=== PATIENT | male | born 1985 | race Caucasian/White ===

== ENCOUNTER 2019-05-05 09:15 | Emergency (ER) | payer OTHER ==
[2019-05-05 09:37] VITALS: BP 140/97
--- NOTE | 2019-05-05 09:48 | UC ---
Cardiac HPI - HPI Summary HPI Summary: 33 y/o male presents to the urgent care c/o left laterals side rib pain radiating to flank area s/p doing leg presses and the GYM on 04/28/2019. Pt reports he was doing weights w/ his legs when he felt a cramp, but he was able to finish his set. He states at rest no pain, but w/ certain movements or bumps in the car pain is 6/10. He has taken Aleve PO to alleviate symptoms. He is concerned w/ a rib fracture. He denies any bruises or swelling, fever, dizziness, SOB, ches tpian, respiratory distress, urinary symptoms, Hx of kidney stones, N/V/D. - History of Current Complaint Chief Complaint: UCBackPain Stated Complaint: LT RIB PAIN Time Seen by Provider: 05/05/19 09:47 Hx Obtained From: Patient Onset/Duration: Gradual Onset, Lasting Days - 4 days Timing: Constant Initial Severity: Mild Current Severity: Moderate Pain Intensity: 6 - w/ movement Chest Pain Location: Discrete at:, Left Lateral - rib pain radiating to the flank left side at times Character: Dull/Aching Aggravating Factor(s): Movement, Deep Breaths Alleviating Factor(s): Rest, Position, OTC Meds Associated Signs & Symptoms: Positive: Negative - Risk Factors Pulmonary Embolism Risk Factors: Negative Cardiac Risk Factors: Negative Atrial Fibrillation: Negative TAD Risk Factors: Negative - Allergy/Home Medications Allergies/Adverse Reactions: Allergies Allergy/AdvReac Type Severity Reaction Status Date / Time No Known Allergies Allergy Verified 05/05/19 09:31 Home Medications: Home Medications Ibuprofen TAB* [Motrin TAB* 400 MG] 400 mg PO Q6H PRN 05/05/19 [History Confirmed 05/05/19] PMH/Surg Hx/FS Hx/Imm Hx Previously Healthy: Yes - Pt denies PMHX - Surgical History Surgical History: None - Family History Known Family History: Positive: Diabetes - Social History Occupation: Employed Full-time Lives: With Family Alcohol Use: None Substance Use Type: None Smoking Status (MU): Never Smoked Tobacco Review of Systems All Other Systems Reviewed And Are Negative: Yes Constitutional: Positive: Negative Skin: Positive: Negative Eyes: Positive: Negative ENT: Positive: Negative Respiratory: Positive: Negative Cardiovascular: Positive: Negative Gastrointestinal: Positive: Negative Genitourinary: Positive: Negative Motor: Positive: Negative Neurovascular: Positive: Negative Musculoskeletal: Positive: Decreased ROM - lateral side of his left ribs, Other : - laterals side of left rib pain Neurological: Positive: Negative Psychological: Positive: Negative Is Patient Immunocompromised?: No Physical Exam - Summary Physical Exam Summary: Vital Signs Reviewed: Yes General: well developed, well nourished male sitting in the examining table w/o any apparent distress Eyes: Positive: Conjunctiva Clear - PERRLA, EOMI, fundi grossly normal ENT: Positive: Normal ENT inspection, Hearing grossly normal, Pharynx normal, Nasal congestion - edematous and erythematous nasal mucosa, Nasal drainage - yellowish drainage, TMs normal. Negative: Tonsillar swelling, Tonsillar exudate Neck: Positive: Supple, Nontender, No Lymphadenopathy Respiratory: no orthopnea or dyspnea. Able to speak in full sentences, no retractions or accessory muscle use, no tripod position, stridor, or head bobbing. Positive breath sounds bilaterally. diffuse scattered wheezing and rhonchi on b/L lungs, no crackles or rales. Point tenderness on left lateral side of Ribs #10-12 w/o soft tissue swelling or ecchymosis. Cardiovascular: Positive: RRR, No Murmur, Pulses Normal, Brisk Capillary Refill Abdomen Description: Positive: Nontender, No Organomegaly, Soft. Negative: CVA Tenderness (R), CVA Tenderness (L) Bowel Sounds: Positive: Present Musculoskeletal Exam: Normal Musculoskeletal: Positive: Strength Intact, ROM Intact, No Edema Neurological Exam: Normal Psychological Exam: Normal Skin Exam: Normal Triage Information Reviewed: Yes Vital Signs: Initial Vital Signs Temp 98.5 F 05/05/19 09:32 Pulse 59 05/05/19 09:32 Resp 16 05/05/19 09:32 BP 140/97 05/05/19 09:32 Pulse Ox 98 05/05/19 09:32 - Assessment/Plan Course Of Treatment: 33 y/o male presents to the urgent care c/o left laterals side rib pain radiating to flank area s/p doing leg presses and the GYM on 04/28/2019. Pt reports he was doing weights w/ his legs when he felt a cramp, but he was able to finish his set. He states at rest no pain, but w/ certain movements or bumps in the car pain is 6/10. He has taken Aleve PO to alleviate symptoms. He is concerned w/ a rib fracture. He denies any bruises or swelling, fever, dizziness, SOB, ches tpian, respiratory distress, urinary symptoms, Hx of kidney stones, N/V/D. Hx obtained. Pt is hemodynamically stable. UA: negtive. LF Rib and Chest X-ray ordered to r/o fracture. Impression:No rib fracture , no pneumothorax or effusion observed as per radiologist. Pt w/ possible muscle spasm. Pt given an Incentive Spirometer to improve lung function and avoid atelectasis seen he states pain w/ deep breathing. Nurse educated Pt on how to use it. Pt Rx Flexeril PO PO and advised to continue taking Ibuprofen PO for pain and f/u w/ PCP if not improvement of symptoms. Also advised to avoid strenuous exercise or heavy lifting. Pt's BP is elevated today advised to decrease salt in diet, monitor BP and f/u with PCP for further management. D/C instructions explained. Pt understood and agreed w/ plan of care. left clinic ambulating and hemodynamically stable. - Differential Diagnoses - Chest Pain Differential Diagnosis/HQI/PQRI: Acute OR, Angina, Chest Wall, GI Disease, Pulmonary Embolism - Clinical Impression Provider Diagnosis: Muscle spasm, Elevated BP without diagnosis of hypertension Discharge ED - Sign-Out/Discharge Documenting (check all that apply): Patient Departure - D/C home All imaging exams completed and their final reports reviewed: Yes - Discharge Plan Condition: Stable Disposition: HOME Prescriptions: Cyclobenzaprine TAB* [Flexeril 10 MG TAB*] 10 mg PO TID PRN #21 tab PRN Reason: Spasms - Neck Patient Education Materials: Muscle Spasm (ED) Forms: *Work Release Referrals: [facility] [place] [facility] [Outside] - 2 Days [facility] [Provider Group] - 1 Week Additional Instructions: 1- Please continue taking Ibuprofne PO q6-8hrs prn as directed after meals for pain. 2- Take Flexeril PO as directed for muscle spasm. Please do not drive while taking the medication. 3- Avoid strenuous exercise or heavy lifting. Please wear a back support 4- Please follow up with Orthopedic Dr from Sports Medicine in 1 week if not improvement of symptoms, for further management. 5- Your BP is elevated today advised to decrease salt in diet, monitor BP and f/ u with PCP for further management. - Billing Disposition and Condition Condition: STABLE Disposition: Home
[2019-05-05] MEDS ORDERED: Ibuprofen TAB* 400 MG PO ONE (10:24)
== END 2019-05-05 11:30 | disposition home or self-care (01) ==
LOC: UCEAST 09:15
DX: R03.0 Elevated blood-pressure reading, without diagnosis of hypertension (principal); M62.838 Other muscle spasm; R10.9 Unspecified abdominal pain
CPT/HCPCS: 81003; 99212; A9270-GY; G0463